=== PATIENT | male | born 1960 | race Caucasian/White ===

== ENCOUNTER 2022-01-01 07:16 | Outpatient (CLI) | payer OTHER, SELFPAY | END 2022-01-01 07:17 | disposition home or self-care (01) | LOC: FRMREF 01-09 09:30 | PROVIDERS: PCP Family Medicine; Visit Provider Family Medicine | DX: Z00.00 Encounter for general adult medical examination without abnormal findings (principal); E78.5 Hyperlipidemia, unspecified; N52.9 Male erectile dysfunction, unspecified | CPT/HCPCS: 80053; 80061; 84153 ==

== ENCOUNTER 2022-04-21 08:41 | Outpatient (CLI) | payer OTHER, SELFPAY ==
--- NOTE | 2022-04-21 09:00 | CRLHL7_ITS ---
For Patients: As a result of the 21st Century Cures Act, medical imaging exams and procedure reports are released immediately into your electronic medical record. You may view this report before your referring provider. If you have questions, please contact your health care provider. Indication: ABNORMAL WEIGHT LOSS Technique: Postcontrast CT chest, abdomen and pelvis. 122 cc Isovue 370 intravenous contrast. Please note that all CT scans at this facility use dose modulation, iterative reconstruction, and/or weight-based dosing when appropriate to reduce radiation dose to as low as reasonably achievable. Comparison: 11/26/2020 Findings: In the chest, mild emphysematous changes are present. No infiltrate or suspicious pulmonary nodule. No mediastinal, hilar or axillary adenopathy. The visualized thyroid is normal. Degenerative disc disease in the mid thoracic spine. No compression fracture. Vascular calcifications without aneurysm or dissection. No pulmonary embolism. Mild cardiomegaly. In the abdomen, the liver is within normal limits. Several peripherally calcified gallstones are present within the gallbladder lumen measuring up to 1.2 cm. No biliary obstruction. The pancreas is within normal limits. Normal spleen. The adrenal glands are normal. There is no hydronephrosis. No solid renal mass. Small renal cortical cysts are present. The largest is located on the left at the upper pole measuring 2.8 cm. Several small subcentimeter retroperitoneal lymph nodes are present. Vascular calcifications are present. Ectatic aorta noted measuring up to 2.8 cm. No bowel obstruction. Mildly prominent loops of jejunum are noted containing fluid. In the pelvis, there is a new mild compression deformity involving the superior endplate of L3. Stable benign bone island within the right posterior iliac bone. Facet degeneration lower lumbar spine. There is no pelvic or inguinal adenopathy. Bladder is normal. Mild pelvic free fluid noted. No pelvic soft tissue mass. Sigmoid diverticulosis. No diverticulitis. Impression: Mildly prominent fluid-filled loops of jejunum in the left upper quadrant may represent a chronic mild enteritis. Mild pelvic free fluid may be associated with this finding. No abscess. No bowel obstruction. Chronic sigmoid diverticulosis without diverticulitis. Ectatic abdominal aorta measuring up to 2.8 cm. Chronic cholelithiasis. Incidental simple renal cortical cysts. Mild compression deformity L3 superior endplate new since the prior study. Please note that all CT scans at this facility use dose modulation, iterative reconstruction, and/or weight-based dosing when appropriate to reduce radiation dose to as low as reasonably achievable. Dictated by Nelson Vann MD @ 04/21/2022 10:55:14 AM (Electronically Signed)
== END 2022-04-21 08:42 | disposition home or self-care (01) ==
LOC: CT 08:42
PROVIDERS: PCP Family Medicine; Visit Provider Family Medicine
DX: R63.4 Abnormal weight loss (principal); K57.30 Diverticulosis of large intestine without perforation or abscess without bleeding; K80.20 Calculus of gallbladder without cholecystitis without obstruction; N28.1 Cyst of kidney, acquired
CPT/HCPCS: 71260; 74177; Q9967

== ENCOUNTER 2022-05-18 15:30 | Outpatient (CLI) | payer OTHER, SELFPAY ==
[2022-05-18 22:36] LABS: Chloride* 105 mmol/L (96-114)
[2022-05-18 22:37] LABS: Potassium* 4.5 mmol/L (3.6-5.1); Sodium* 139 mmol/L (135-149)
[2022-05-18 22:40] LABS: Blood Urea Nitrogen* 12 mg/dL (7-30); Calcium* 8.4 mg/dL (8.4-10.6); Carbon Dioxide* 29 mmol/L (20-32); Creatinine* 0.8 mg/dL (0.5-1.5); Estimated Glomerular Filt Rate 102 ml/min
[2022-05-19 04:34] LABS: Glucose* 103 mg/dL (60-115)
== END 2022-05-18 15:31 | disposition home or self-care (01) ==
LOC: FRMREF 15:31
PROVIDERS: PCP Family Medicine; Visit Provider Family Medicine
DX: Z01.818 Encounter for other preprocedural examination (principal); I21.4 Non-ST elevation (NSTEMI) myocardial infarction; I30.9 Acute pericarditis, unspecified; K20.90 Esophagitis, unspecified without bleeding; K22.70 Barrett's esophagus without dysplasia
CPT/HCPCS: 80048

== ENCOUNTER 2022-05-22 08:09 | Outpatient (CLI) | payer OTHER, SELFPAY ==
--- NOTE | 2022-05-22 09:15 | W.ANESCHARGE ---
Anesthesia Charges Start Date/Time Anesthesia Start Date: 05/22/22 Anesthesia Start Time: 09:07 Stop Date/Time Anesthesia Stop Date: 05/22/22 Anesthesia Stop Time: 09:25 Summary Emergency: No
--- NOTE | 2022-05-22 09:33 | W.ANESCHARGE ---
Anesthesia Charges Start Date/Time Anesthesia Start Date: 05/22/22 Anesthesia Start Time: 09:07 Stop Date/Time Anesthesia Stop Date: 05/22/22 Anesthesia Stop Time: 09:25 Summary Emergency: No
== END 2022-05-22 08:10 | disposition home or self-care (01) ==
PROVIDERS: PCP Family Medicine; Visit Provider Internal Medicine
DX: K22.70 Barrett's esophagus without dysplasia (principal); K22.89 Other specified disease of esophagus; R13.10 Dysphagia, unspecified
CPT/HCPCS: 00731; 43239; 88305; 88342; J2704

== ENCOUNTER 2023-08-12 15:20 | Outpatient (CLI) | payer OTHER, SELFPAY | END 2023-08-12 15:21 | disposition home or self-care (01) | PROVIDERS: PCP Family Medicine; Visit Provider Family Medicine | DX: M32.9 Systemic lupus erythematosus, unspecified (principal); R63.4 Abnormal weight loss; E78.2 Mixed hyperlipidemia; D64.9 Anemia, unspecified; D69.6 Thrombocytopenia, unspecified; Z11.59 Encounter for screening for other viral diseases; K31.A0 Gastric intestinal metaplasia, unspecified | CPT/HCPCS: 80053; 80061; 82607; 84443; 86301; 86803; G0103 ==

== ENCOUNTER 2023-08-30 15:34 | Outpatient (CLI) | payer OTHER, SELFPAY ==
--- NOTE | 2023-08-30 16:00 | CT_ITS ---
Patient: BALA Phillips [facility] Facility:?[facility] Patient ID:?[id number] Site Patient ID:?[id number]. Site :?[id number] Study:?CT-Chest WITHOUT LUNG SCREENING-08/30/2023 3:59:56 PM Ordering Physician:?DR RODRÍGUEZ Final Report: INDICATION: Lung cancer screening. TECHNIQUE: Low-dose lung cancer screening non-contrast CT chest. Dose reduction techniques were used. COMPARISON: CT 08/28/2022 FINDINGS: NODULES: Few scattered tiny nodules are unchanged. Example 2 millimeter right middle lobe perifissural nodule 2/105. A 2 millimeter subpleural right middle lobe nodule 2/133 LUNGS AND PLEURA: Normal. MEDIASTINUM: Normal. CORONARY ARTERY CALCIFICATION: None. LIMITED UPPER ABDOMEN: Low-attenuation lesion in the left hepatic lobe unchanged probably reflects a cyst. MUSCULOSKELETAL: Normal. IMPRESSION: 1. A few small pulmonary nodules appear unchanged. LUNG-RADS CATEGORY: 2: Benign. RADIOLOGIST RECOMMENDATION: Continue annual screening with low-dose CT chest in 12 months. Please note that all CT scans at this facility use dose modulation, iterative reconstruction, and/or weight-based dosing when appropriate to reduce radiation dose to as low as reasonably achievable. Dictated by Sunni Moon MD @ 08/31/2023 6:28:51 AM Signed by:?Sunni Moon MD @08/31/2023 6:28:51 AM (Electronic Signature)
== END 2023-08-30 15:35 | disposition home or self-care (01) ==
LOC: CT 15:35
PROVIDERS: PCP Family Medicine; Visit Provider Family Medicine
DX: Z12.2 Encounter for screening for malignant neoplasm of respiratory organs (principal); R91.8 Other nonspecific abnormal finding of lung field; Z72.0 Tobacco use
CPT/HCPCS: 71271

== ENCOUNTER 2023-11-22 22:19 | Outpatient (REF) | payer OTHER, SELFPAY ==
--- OUTSIDE RECORDS SUMMARY | 2023-11-22 22:35 | XMS_ITS | Clinical Summary ---
[facility] Address [address] [place] [address] Care Team Providers Care Lead Sewage Plant Operator Name Role Phone Needs Pcp, Assignment Primary Care Provider [phone] Source Comments You are receiving this document as you are listed as the primary care provider,follow-up provider, or the patient has been referred to you for consultation.This is in compliance with the Medicare and[facility] Hospital[facility] EHR Incentive Program,which states Providers who transition their patient to another setting of careor provider of care or refers their patient to another provider of care shouldprovide summary care record for each transition of care or referral. [facility] Allerg[facility] No known active allergies Medications Medication Sig Dispensed Refills Start Date End Date Status NIFEdipine (ADALATCC) 30 MG 24 hour release tablet 1 05/19/2016 Active azaTHIOprine (IMURAN) 50 MG tablet Take 3 Tablets (150 mg) by mouth daily. 1.5 in the morning and 1 at night 08/23/2017 Active atorvastatin (LIPITOR) 40 MG tablet Take 1 Tablet (40 mg) by mouth daily at bedtime. 02/15/2022 Active LACTASE ENZYME 3000 units tablet Take 1 Tablet (3,000 Units) by mouth three times a day as needed. 04/18/2022 Active metoclopramide (REGLAN) 10 MG tablet Take 1 Tablet (10 mg) by mouth as needed. 03/19/2022 Active metoprolol succinate (TOPROL XL) 25 MG 24 hour release tablet Take 1 Tablet (25 mg) by mouth daily. 02/22/2022 Active omeprazole (PRILOSEC) 20 MG capsule Take 1 Capsule (20 mg) by mouth two times a day. 04/15/2022 Active aspirin, enteric-coated 81 MG enteric coated tablet Take 1 Tablet (81 mg) by mouth daily. Active simethicone (MYLICON) 125 MG chewable tablet Chew and swallow 2 Tablets (250 mg) by mouth every 6 hours as needed. Active loperamide (IMODIUM) 1 mg/5 mL solution Take 10 mL (2 mg) by mouth 4 times daily as needed for Diarrhea. Active Active Problems No known active problems Social History Tobacco Use Types Packs/Day Years Used Date Smoking Tobacco: Every Day Cigarettes Smokeless Tobacco: Never Tobacco Cessation:Ready to Q uit: Not Asked; Counseling Given: Not Answered Alcohol Use Standard Drinks/Week Comments Not Currently 0 (1 standard drink = 0.6 oz pur e alcohol) 2 beers/month Sex and Gender Information Value Date Recorded Sex Assigned at Not on file Gender Identity Not on file Sexual Orientation Not on file Last Filed Vital Signs Vital Sign Reading Time Taken Comments Blood Pressure 116/63 08/26/2016 10:03 AM CDT Pulse 97 08/26/2016 10:03 AM CDT Temperature 37.1 ??C (98.7 ??F) 08/26/2016 1 0:03 AM CDT Respiratory Rate 22 08/26/2016 10:0 3 AM CDT Oxygen Saturation 92% 08/26/2016 10: 03 AM CDT Inhaled Oxygen Concentration - - Weight 99.2 kg (218 lb 12.8 oz) 04/01/2023 2:17 PM GENERAL OFFICE ASSOCIATE Height 180.3 cm (5' 11) 04/01/2023 2:17 PM GENERAL OFFICE ASSOCIATE Body Mass Index 30.52 04/01/2023 2:17 PM GENERAL OFFICE ASSOCIATE Plan of Treatment Health Maintenance Due Date Last Done Comments Colon Cancer Screening Plan Due 1960 Diabetes Screening- (based o n age and BMI) 1960 PSA Screening Discussion 1962 Pneumococcal (1 - PCV) 1968 Adult Preventive Visit 1980 Cholesterol 1997 Zoster/Shingles (1 of 2) 2012 COVID-19 Vaccine (4 - 2022-2 4 season) 2023 04/19/2021, 08/15/2020, 07/18/2020 Influenza (#1) 2024 02/19/2014 DTaP/Tdap/Td (2 - Tdap) 02/20/2024 02/19/2014 HIV Screening (Preventive Services) Completed 05/19/2022 Hep C Screening (Preventive Services) Completed 05/19/2022 HepA Aged Out No longer eligi ble based on patient's age to complete this topic HepB Aged Out No longer eligi ble based on patient's age to complete this topic Hib Aged Out No longer eligi ble based on patient's age to complete this topic IPV (Polio) Aged Out No longer eligi ble based on patient's age to complete this topic MCV4 Aged Out No longer eligi ble based on patient's age to complete this topic Medical Devices Implanted Type Area Sales Trainee Device Identifier Shelf Expiration Date Model / Serial / Lot Bone Flaco Canc Crushed 15cc - [id number] Implanted:Qty : 1 on 08/25/2016 by J Luis Sheldon MD at [facility] N/A: SPINE CERVICAL ANTERIOR [employer] - [employer] 02/01/2021 [id number] / [id number] / Cage Lord Cerv 14x17 - [id number] Implanted:Qty : 1 on 08/25/2016 by J Luis Sheldon MD at [facility] DEVICE N/A: SPINE CERVICAL ANTERIOR LDR [employer]ine [employer] 06/03/2019 [id number] / / [id number] Plt Anchoring Std - [id number] Implanted:Qty : 1 on 08/25/2016 by J Luis Sheldon MD at [facility] DEVICE N/A: SPINE CERVICAL ANTERIOR LDR [employer] 10/01/2020 [id number] / / [id number] Plt Anchoring Std - [id number] Implanted:Qty : 1 on 08/25/2016 by J Luis Sheldon MD at [facility] DEVICE N/A: SPINE CERVICAL ANTERIOR LDR [employer] 10/01/2020 [id number] / / [id number] 8mm 12x15,5mm Implanted:Qty : 1 on 08/25/2016 by J Luis Sheldon MD at [facility] DEVICE N/A: SPINE CERVICAL ANTERIOR LDR [employer] 10/31/2018 [id number] / / [id number] Description:ref [id number] SNEHA-C LORDOTIC IMPLANT Procedures Procedure Name Priority Date/Time Associated Diagnosis Comments HIV 1/2 AG/AB 4TH GEN Routine 05/19/2022 3:29 PM GENERAL OFFICE ASSOCIATE Abnormal weight loss HEPATITIS PANEL ACUTE WITH REFLEX TO CONFIRMATION Routine 05/19/2022 3:29 PM GENERAL OFFICE ASSOCIATE Abnormal weight loss from Last 3 Months or Most Recently Relevant to Health Maintenance Results * Hepatitis Panel with Reflex to Confirmation (05/19/2022 3:29 PM GENERAL OFFICE ASSOCIATE) Hepatitis A Antibody, IgM Negative (Non Reactive) Negative (Non Reactive) 05/19/2022 9:20 PM GENERAL OFFICE ASSOCIATE [facility] Comment:IgM anti-HAV not det ected. Does not exclude the possibility of exposure to or infection with HAV. Levels of IgM anti-HAV may be below the cut-off in early infection. Hepatitis Bc Antibody,IgM Negative (Non Reactive) Negative (Non-Reacti ve) 05/19/2022 9:20 PM GENERAL OFFICE ASSOCIATE [facility] Comment:IgM anti-HBc not det ected. Does not exclude the possibility of exposure to or infection with HBV. Hepatitis B Surface Antigen Negative (Non Reactive) Negative (Non Reactive) 05/19/2022 9:20 PM GENERAL OFFICE ASSOCIATE [facility] Hepatitis C Antibody Negative (Non Reactive) Negative (Non Reactive) 05/19/2022 9:20 PM GENERAL OFFICE ASSOCIATE [facility] Comment:Antibodies to HCV no t detected. Does not exclude the possiblity of exposure to HCV. Blood Venipuncture / Unknown 05/19/2022 3:29 PM GENERAL OFFICE ASSOCIATE 05/19/2022 3:29 PM GENERAL OFFICE ASSOCIATE Jaci Richey APRN, ENVIRONMENTAL MONITORING TECHNICIAN LAB[facility] [address] * HIV 1/2 Ag/Ab 4th Generation (05/19/2022 3:29 PM GENERAL OFFICE ASSOCIATE) HIV 1/2 Antigen/Antib montrell (4th generation) Negative (Non Reactive) Negative (Non Reactive) 05/19/2022 9:13 PM GENERAL OFFICE ASSOCIATE [facility] Comment:HIV-1 p24 Antigen an d HIV-1/HIV-2 Antibody not detected Blood Venipuncture / Unknown 05/19/2022 3:29 PM GENERAL OFFICE ASSOCIATE 05/19/2022 3:29 PM GENERAL OFFICE ASSOCIATE Jaci Richey APRN, ABIM[place]OLA [facility] [address] [place] [address], [facility] from Last 3 Months or Most Recently Relevant to Health Maintenance Advance Directives * Full Code (Latest Code Status on File) Date Activated Date Inactivated Comments 08/25/2016 1:25 PM 08/26/2016 2:19 PM Care Teams Lead Sewage Plant Operator Relationship Specialty Start Date End [place] [address] PCP - General 10/22/16
--- OUTSIDE RECORDS SUMMARY | 2023-11-22 22:35 | XMS_ITS | Encounter Summary ---
Author Organization [facility] Address [address] [address] Care Team Providers Care Chief Diversity Officer Name Role Phone Needs Pcp, Assignment Primary Care Provider [phone] Encounter Details Date Type Department Care Team (Late st Contact Info) Description 08/25/2016 Consent for Procedure/Treatme nt [facility] Department INFORMED CONSENT RECORD Social History Tobacco Use Types Packs/Day Years Used Date Smoking Tobacco: Every Day Cigarettes Alcohol Use Standard Drinks/Week Comments Yes 0 (1 standard drink = 0.6 oz pur e alcohol) 2 beers/month Sex and Gender Information Value Date Recorded Sex Assigned at Not on file Gender Identity Not on file Sexual Orientation Not on file documented as of this encounter Plan of Treatment Not on file documented as of this encounter Visit Diagnoses Not on filedocumented in this encounter Care Teams Chief Diversity Officer Relationship Specialty Start Date End Date Needs Pcp, Assignment JONA [place], [place] [address] PCP - General 10/22/16 documented as of this encounter
--- OUTSIDE RECORDS SUMMARY | 2023-11-22 22:35 | XMS_ITS | Continuity of Care Document ---
Author Organization [facility] Address [address] [address] [place] [address] Phone Care Team Providers Care Drum Printer Name Role Phone Manuel VELÁZQUEZ, Melquiades Unavailable Unavailable Allergies, Adverse Reactions, Alerts Substance Reaction Status Criticality No Known Allergies Active No Inform ation Medications Medication Instructions Dosage Effective Dates (start - stop) Status Comments LACTASE (unknown strength) as needed Not Available - Active azathioprine 50 mg tablet take 1 tablet by oral route 2 times every day 50 MG - Active aspirin 81 mg tablet,delayed release take 1 tablet by oral route every day 81 MG - Active omeprazole 20 mg tablet,delayed release take 2 tablet by oral route 2 times every day 2 tablet - Active nifedipine ER 60 mg tablet,extended release take 1 tablet by oral route every day 60 MG - Active metoprolol succinate ER 25 mg tablet,extended release 24 hr take 0.5 tablet by oral route every day 12.5 MG - Active atorvastatin 40 mg tablet take 1 tablet by oral route every day 40 MG - Active Procedures Procedure Date Routine Serum Collection Offic/outpt E&m New Mod-hi Routine Serum Collection Advance Directives Directive Yes / No Effective Date File Name No Information Encounters Encounter Description Practice Location Reason(s) For Visit Diagnoses Date Provider Providers Copied on Encounter [facility], [address] [address], [place], [id number], [place] tel:[phone] [facility] No Information Piter-0 4 Manuel Arnett. [address] [facility], [address], [id number], [place]. tel:[phone] [facility], [address] [address], [place], [id number], [place] tel:[phone] [facility] Small bowel stricture 4 Manuel Arnett. [address] [facility], [address], [id number], [place]. tel:[phone] [facility], [address] [address], [facility] [place], [id number], [place] tel:[phone] [facility] Other specified abnormal findings of blood chemistry Aug-3 4 Manuel Arnett. [address] [place] [address], [id number], [place]. tel:[phone] Referring Provider: Referral Self, USE FOR SELF REFERRALS. [facility], [address] [address], [facility] [place], [id number], [place] tel:[phone] [facility] Elevated liver function tests Aug- 4 Manuel Arnett. [address] [place] [address], [address], [id number], [place]. tel:[phone] Offic/outpt E&m [facility], [address] [address], [facility] [place], [id number], [place] tel:[phone] [facility] GI Symptoms or Concerns (chief complaint) Nicholsa's esophagus without dysplasiaGastric intestinal metaplasiaWeight lossChange in bowel habits Aug-2 4 Manuel Arnett. [address] [place] [address], [address], [id number], [place]. tel:[phone] Referring Provider: Ivis Alvarez, [address], [place], [address]. tel:[phone] [facility], [address] [address], [place], [place], [id number], [place] tel:[phone] [facility] No Information Gabriel Brandt. [address] [facility], [facility] [address], [place], [place], [id number], [place]. tel:[phone] Family History Family Member Type Diagnosis Age At Onset No Information Immunizations Vaccine Date Status Comments SARS-COV-2 (COVID-19) vaccin e, mRNA, spike protein, LNP, preservative free, 100 mcg/0.5mL dose or 50 mcg/0.25mL dose administered Note: [facility] bi -directional interface ; Source: Other Registry SARS-COV-2 (COVID-19) vaccin e, mRNA, spike protein, LNP, preservative free, 100 mcg/0.5mL dose or 50 mcg/0.25mL dose administered Note: [facility] bi -directional interface ; Source: Other Registry SARS-COV-2 (COVID-19) vaccin e, mRNA, spike protein, LNP, preservative free, 100 mcg/0.5mL dose or 50 mcg/0.25mL dose administered Note: [facility] bi -directional interface ; Source: Other Registry tetanus toxoid, reduced diphtheria toxoid, and acellular pertussis vaccine, adsorbed administered Note: [facility] b i-directional interface ; Source: Other Registry Afluria Qd administered Note: [facility] bi-directional interface ; Source: Other Registry Payers Payer name Insurance type Covered libertarian ID Authorchapisa darbelen(s) Sada CI [id number] Social History Type Description Quantity Date Captured Comments Alcohol Use Details Unknown Caffeine Use Details Unknown Tobacco Use Status Smoking Status No Information Sex Male Chief Complaint And Reason For Visit No Information Reason For Referral Reason For Referral No Information Plan Of Treatment Date Type Action Status Referral Ordered: Hemochromatosis, DNA Gene Test, Whole Blood Appointment date/timeframe: First Available ordered Referral Ordered: Actin (Smooth Muscle) Antibody Appointment date/timeframe: First Available ordered Referral Ordered: Celiac: DGP IgA/G + TTG +IgA Appointment date/timeframe: First Available ordered Referral Ordered: Antinuclear Antibodies, STACIA, IFA Appointment date/timeframe: First Available ordered Referral Ordered: Thyroid [place] Profile Appointment date/timeframe: First Available ordered Referral Ordered: HCV RNA by PCR, Qn Rfx Talya Appointment date/timeframe: First Available ordered Referral Ordered: EGD Appointment date/timeframe: 09/13/2023 ordered Referral Ordered: Colonoscopy Appointment date/timeframe: 09/13/2023 ordered Referral Ordered: CT Enterography WITH Contrast Appointment date/timeframe: 09/16/2023 ordered Appointment [facility] BOOKED History Of Present Illness Encounter Date Complaint History Of Prese nt Illness GI Symptoms or Concerns this is a 62-year-old male with a past medical history of Barretts esophagus per chart review, lupus on azathioprine, hyperlipidemia, active smoker, nifedipine for Raynaud's who presents here for mainly unintentional weight loss of over 100 pounds in about 3 years' time. He is being sent to us for consultation by Ivis Urban MD. patient notes that 3 years ago patient weighed 335 pounds now weighs 210 pounds without meaning to lose weight. Patient has not change anything significantly with diet. Patient has noticed that in the last few months he will have some nausea and belching and then an episode of emesis and then will feel better after the episode of emesis. Patient also notes a change in bowel movements from 2-3 loose bowel movements a day and can go several days without a bowel movement then we will have 2 or 3 bowel movements again. Patient denies any abdominal pain. Two months ago he was tested for H pylori and was positive and was treated. Only outside tests that I can see is that he had a CBC done that shows mild leukopenia 3.66 and anemia of 10.7. Platelets of 143. From a social standpoint patient does smoke. No recreational drug use. Patient does not drink any alcohol during the winter iron. Has 3 or 4 drinks once a week during the summer at most. Functional Status Date Functional Assessmen t No Information Instructions Date Instruction Additional Infor oneil -- As we discussed t o evaluate your weight loss as well as some change in bowel habits we will proceed with blood testing, CT scans and upper and lower endoscopy-- after the above testing has been completed to discuss things in detail we will set up a follow up appointment Related to Nicholas's esophagus without dysplasia Assessments Type Assessment Date No Information Patient Care Teams Name Effective Dates (start - stop) Status Members No Information
--- OUTSIDE RECORDS SUMMARY | 2023-11-22 22:35 | XMS_ITS | Encounter Summary ---
Author Organization [facility] Address [address], [place] [address] Care Team Providers Care Silk Blocker Name Role Phone Needs Pcp, Assignment Primary Care Provider [phone] Encounter Details Date Type Department Care Team (Late st Contact Info) Description 08/05/2016 Correspondence External to External, [place] [address] APPROVAL NOTIFICATION Social History Tobacco Use Types Packs/Day Years [...] on filedocumented in this encounter Care Teams Silk Blocker Relationship Specialty Start Date End Date Needs Pcp[place] [address] PCP - General 10/22/16 documented as of this encounter
--- OUTSIDE RECORDS SUMMARY | 2023-11-22 22:35 | XMS_ITS | Clinical Summary ---
Author Organization [facility] Address [place], [place] [address] Care Team Providers Care Director Of Strategic Sourcing Name Role Phone Troy Abdi MD Unavailable [phone] Ivis Urban MD Primary Care Provider [phone] Allergies Active Allergy Reactions Criticality Noted Date Comments Hydroxychloroquine Diarrhea,GI Upset 06/21/2014 Medications Medication Sig Dispensed Refills Start Date End Date Status aspirin (ECOTRIN) 81 mg enteric coated tablet Take 1 Tablet (81 mg) by mouth once daily. 0 09/19/2020 Active acetaminophen (TYLENOL EXTRA STRGTH) 500 mg tablet Two tablets every morning and before bed PRN 0 09/19/2020 Active Simethicone (Gas-X) 125 mg capsule Take 1 Capsule (125 mg) by mouth 4 times daily if needed. Max dose: 500 mg per 24 hrs 0 09/24/2021 Active atorvastatin (LIPITOR) 40 mg tabletIndications:NS PATEL (non-ST elevated myocardial infarction) (HC) Take 1 Tablet (40 mg) by mouth at bedtime. 09/21/2023 Active metoprolol tartrate (LOPRESSOR) 25 mg tablet Take 12.5 mg by mouth once daily. Active NIFEdipine ER (ADALAT CC) 30 mg extended-Release tabletIndications:Ra ynaud's disease without gangrene Take 1 Tablet (30 mg) by mouth once daily before a meal. 09/21/2023 Active omeprazole (PRILOSEC) 20 mg Delayed-Release capsuleIndications:G astroesophageal reflux disease, unspecified whether esophagitis present Take 2 Capsules (40 mg) by mouth two times daily before meals. 09/21/2023 Active NIFEdipine (PROCARDIA XL) 60 mg extended-release tabletIndications:Ra ynaud's disease without gangrene TAKE 1 TABLET BY MOUTH EVERY DAY BEFORE A MEAL 90 Tablet 1 10/05/2023 Active azaTHIOprine (IMURAN) 50 mg tabletIndications:Sy stemic lupus erythematosus, unspecified SLE type, unspecified organ involvement status (HC) TAKE 2.5 TABLETS (125 MG) BY MOUTH ONCE DAILY. 150 Tablet 10/22/2023 Active Active Problems Problem Noted Date Diagnosed Date Hyperlipidemia 06/24/2012 Low testosterone 06/24/2012 Erectile dysfunction 04/18/2012 Impaired fasting glucose 04/18/2012 Calculus of gallbladder with out mention of cholecystitis or obstruction 11/11/2011 Sleep disorder 11/11/2011 Chest pain, unspecified 10/19/2011 Dyspnea 10/19/2011 Acute pericarditis 10/19/2011 Abnormal LFTs 10/19/2011 Overview: Per patient was abnormal at LFTs. 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 Tobacco abuse 10/19/2011 SLE (systemic lupus erythematosus) Encounters Date Type Department Care Team Description 11/22/2023 1:40 PM CDT Office Visit [facility] [address] [place] [address] Troy Abdi MD Follow Up 11/22/2023 Travel 10/20/2023 Refill [facility] [address] [place] [address] Troy Abdi MD Refill Request (Azathioprine) 10/04/2023 Refill [facility] [address] [place] [address] Troy Abdi MD Refill Request (Nifedipine) 09/21/2023 3:00 PM CDT Office Visit [address] [place] [id number] Elif Landaverde NP Follow Up (1 Month w/ EKG prior. F/U Pt states feeling well today, mentioned low BP this morning. ) 09/21/2023 Travel 09/16/2023 12:47 PM CDT - 09/16/2023 11:59 PM CDT Hospital Encounter [facility] [address] [facility] [place] [address] Melquiades Foster MD Nicholas's esophagus without dysplasia; Gastric intestinal metaplasia; Weight loss; Change in bowel habits 09/16/2023 Travel 09/15/2023 Refill WAVE ([employer]less [employer]) [facility] [address] [place] [address] Troy Abdi MD Refill Request (Azathioprine) 08/26/2023 Orders Only [facility] [address] [facility] [place] [place] [address] Melquiades Foster MD 1 scan: (1-Ord) diag order from Last 3 Months Immunizations Name Administration Dates Next Due Influenza, IIV4 02/19/2014 Tdap 02/19/2014 Family History Medical History Relation Name Comments Cancer-colon Father Cancer-prostate Father Anesthesia Problem No Family History Blood Disease No Family History Relation Name Status Comments Father Social History Tobacco Use Types Packs/Day Years Used Date Smoking Tobacco: Every Day Cigarettes Smokeless Tobacco: Former Tobacco Cessation:Ready to Q uit: Not Asked; Counseling Given: Not Answered Comments:3/4 pack daily Alcohol Use Standard Drinks/Week Comments Yes 0 (1 standard drink = 0.6 oz pure alcohol) very rarely (once every 3 months) Social Connections Answer Date Recorded Frequency of Communication with Friends and Fami ly Not on file 04/25/2021 Financial Resource Strain Answer Date R ecorded Difficulty of Paying Living Expenses Not on file 04/25/2021 Difficulty of Paying Living Expenses Not on file 04/25/2021 Sex and Gender Information Value Date Recorded Sex Assigned at Not on file Gender Identity Not on file Sexual Orientation Not on file Obstetrics History Last Filed Vital Signs Vital Sign Reading Time Taken Comments Blood Pressure 100/64 11/22/2023 1:38 PM CDT Pulse 64 11/22/2023 1:38 PM CDT Temperature 36.9 ??C (98.4 ??F) 08/11/2016 3:21 PM CD T Respiratory Rate 16 10/01/2022 3:25 PM CDT Oxygen Saturation 99% 09/21/2023 2:56 PM CDT Inhaled Oxygen Concentration - - Weight 98.5 kg (217 lb 1.6 oz) 11/22/2023 1:38 P M CDT Height 180.3 cm (5' 11) 11/22/2023 1:38 PM CDT Body Mass Index 30.28 11/22/2023 1:38 PM CDT Plan of Treatment Upcoming Encounters Date Type Department Care Team (Late st Contact Info) Description 12/20/2023 11:00 AM CDT Office Visit 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 Office Visit [facility] [address] [place], [place] [id number] Troy Abdi MD [address] [place] [address] Health Maintenance Due Date Last Done Comments Pneumococcal series for age 6-64 (1 of 2 - PCV) 1968 Depression screening for age 12+ 1974 HIV for age 15-65 1977 Zoster (shingles) series for age 50+ (1 of 2) 1981 COVID-19 vaccine series ( season) 2023 04/19/2021, 08/15/2020, 07/18/2020 Influenza for age 50-64 01/02/2024 02/19/2014 Tetanus booster 02/20/2024 02/19/2014 BMI (ht and wt on same day) for age 18+ 11/21/2024 11/22/2023, 09/21/2023, 07/13/2023, Additional history exists Lipids for age 45-75 07/12/2028 07/13/2023, 02/19/2014, 09/21/2012, Additional history exists Colonoscopy through age 75 09/16/2031 09/15/2021 Hepatitis C screening for ag e 18-79 Completed 02/19/2014 Tdap Completed 02/19/2014 Procedures Procedure Name Priority Date/Time Associated Diagnosis Comments CBC WITH AUTO DIFFERENTIAL Routine 11/22/2023 2:12 PM CDT Systemic lupus erythematosus, unspecified SLE type, unspecified organ involvement status (HC) Raynaud's disease without gangrene CBC WITH AUTO DIFFERENTIAL Routine 11/22/2023 2:12 PM CDT Systemic lupus erythematosus, unspecified SLE type, unspecified organ involvement status (HC) Raynaud's disease without gangrene EKG 12 LEAD Today 09/21/2023 2:50 PM CDT NSTEMI (non-ST elevated myocardial infarction) (HC) CT ABDOMEN PELVIS ENTEROGRAPHY W Routine 09/16/2023 2:09 PM CDT Nicholas's esophagus without dysplasia Gastric intestinal metaplasia Weight loss Change in bowel habits CREATININE,ISTAT Timed 09/16/2023 1:57 PM CDT LIPID PANEL W REFLEX MEASURED LDL Today 07/13/2023 1:31 PM CDT Hyperlipidemia, unspecified hyperlipidemia type COLONOSCOPY DIAGNOSTIC Routine 09/15/2021 12:00 AM CDT Diarrhea, unspecified type Abnormal CT of the abdomen Periumbilical abdominal pain Bloating ANTI HCV Routine 02/19/2014 9:45 AM CDT Need for hepatitis C screening test from Last 3 Months or Most Recently Relevant to Health Maintenance Results * (ABNORMAL) CBC WITH AUTO DIFFERENTIAL (11/22/2023 2:12 PM CDT) [facility] WHITE BLOOD COUNT 4.1(L) 4.5 - 11.0 thou/cu mm 11/22/2023 2:29 PM [facility] RED BLOOD COUNT 4.05(L) 4.30 - 5.90 mil/cu mm 11/22/2023 2:29 PM [facility] HEMOGLOBIN 12.0(L) 13.5 - 17.5 g/dL 11/22/2023 2:29 PM [facility] HEMATOCRIT 37.8 37.0 - 53.0 % 11/22/2023 2:29 PM [facility] MCV 93 80 - 100 fL 11/22/2023 2:29 PM [facility] MCH 29.6 26.0 - 34.0 pg 11/22/2023 2:29 PM [facility] MCHC 31.7(L) 32.0 - 36.0 g/dL 11/22/2023 2:29 PM [facility] RDW 13.5 11.5 - 15.5 % 11/22/2023 2:29 PM [facility] PLATELET COUNT 138(L) 140 - 440 thou/cu mm 11/22/2023 2:29 PM [facility] MPV 10.4 6.5 - 11.0 fL 11/22/2023 2:29 PM [facility] NRBC 0.0 % 11/22/2023 2:29 PM [facility] ABS NRBC 0.0 thou /cu mm 11/22/2023 2:29 PM [facility] % NEUT 53.5 % 11/22/2023 2:29 PM [facility] % LYMPH 26.7 % 11/22/2023 2:29 PM [facility] % MONO 17.6 % 11/22/2023 2:29 PM [facility] % EOS 1.5 % 11/22/2023 2:29 PM [facility] % BASO 0.5 % 11/22/2023 2:29 PM [facility] % IMMATURE GRAN (METAS,MYELOS,DC OS) 0.2 % 11/22/2023 2:29 PM [facility] ABSOLUTE NEUTROPHILS 2.2 1.7 - 7.0 thou/cu mm 11/22/2023 2:29 PM CDT [facility] ABSOLUTE LYMPHOCYTES 1.1 0.9 - 2.9 thou/cu mm 11/22/2023 2:29 PM CDT [facility] ABSOLUTE MONOCYTES 0.7 <0.9 thou/cu mm 11/22/2023 2:29 PM CDT [facility] ABSOLUTE EOSINOPHILS 0.1 <0.5 thou/cu mm 11/22/2023 2:29 PM CDT [facility] ABSOLUTE BASOPHILS 0.0 <0.3 thou/cu mm 11/22/2023 2:29 PM CDT [facility] ABSOLUTE IMMATURE GRANULOCYTES(MET ,MYELOS,PROS) 0.0 <0.3 thou/cu mm 11/22/2023 2:29 PM CDT [facility] Blood BLOOD SPECIMEN / Unknown Venipuncture / Unknown 11/22/2023 2:12 PM CDT 11/22/2023 2:12 PM CDT Troy Abdi MD HEMATOLOGY [facility] SENDOUT INTERNAL ZIP [id number] [place] [address] * EKG 12 LEAD (09/21/2023 2:50 PM CDT) Interpretation Undetermined rhythm High degree Left axis deviation Left ventricular hypertrophy with QRS widening ( R in aVL , [place] product ) AV Block Cannot rule out Septal infarct (cited on or before 08-JUN-2023) Abnormal ECG When compared with ECG of 08-JUN-2023 15:55, Current undetermined rhythm precludes rhythm comparison, needs review Ventricular Rate 54 BPM Atrial Rate 115 BPM P-R Interval ms QRS Duration 136 ms QT 442 ms QTc 419 ms P [place] degrees R [place] -57 degrees T [place] 33 degrees 09/21/2023 2:50 PM CDT 10/05/2023 12:29 PM CDT Elif Landaverde APPRENTICE/LINEMAN EKG ORD * CT ABDOMEN PELVIS ENTEROGRAPHY W (09/16/2023 2:09 PM CDT) Anatomical Region Laterality Modality Abdomen, Pelvis, AORTA, LIVER, SPLEEN Computed Tomography 09/17/2023 3:06 PM CDT Impressions 09/17/2023 3:06 PM CDT Long segmental dilatation of the proximal jejunum beginning at the ligament of Treitz with an apparent transition point in the left upper quadrant (series 7; image 239 and series 5; images 48-50). No obstructing lesion is identified. This may represent a partial small bowel obstruction. No associated abnormal bowel wall thickening or hypoenhancement. No intraluminal lesion of the bowel is identified. Otherwise, diverticulosis of the distal descending and sigmoid colon is noted without evidence of acute diverticulitis. There are no other findings to explain history of altered bowel habits. If not already done, subspecialty (e.g. Gastroenterology, surgery) consultation is suggested. Please note that all CT scans at this facility use dose modulation, iterative reconstruction, and/or weight-based dosing when appropriate to reduce radiation dose to as low as reasonably achievable. Dictated by Mushtaq Huynh MD @ 09/17/2023 3:06:20 PM (Electronically Signed) Narrative 09/17/2023 3:06 PM CDT For Patients: ??As a result of the 21st Century Cures Act, medical imaging exams and procedure reports are released immediately into your electronic medical record. ??You may view this report before your referring provider. ??If you have questions, please contact your health care provider. INDICATION: Weight loss. Altered bowel habits, not otherwise described. History of Nicholas`s esophagus. COMPARISON: None available. TECHNIQUE: CT of the abdomen and pelvis with 100 cc of Omnipaque 350 intravenous contrast. 1350 mL of NeuLumEX oral contrast was also given. Please note that all CT scans at this facility use dose modulation, iterative reconstruction, and/or weight-based dosing when appropriate to reduce radiation dose to as low as reasonably achievable. FINDINGS: ABDOMEN ? Liver: Normal hepatic attenuation. ??No suspicious focal hepatic lesion. No intrahepatic biliary ductal dilatation. Patent portal and hepatic veins. ?? Gallbladder: Cholelithiasis. Normal common duct caliber. No pericholecystic inflammatory changes. ?? Pancreas: Normal pancreatic attenuation. No focal lesion. Normal duct caliber. No peripancreatic inflammatory changes. ?? Spleen: Normal splenic attenuation. No suspicious focal lesion. Patent splenic artery and vein. ?? Adrenal Glands: Symmetrical adrenal glands. No focal lesion of significance. ?? Kidneys: Normal bilateral renal attenuation. No suspicious focal lesion. No obstructing nephrolith or dilatation of the intrarenal collecting systems. Patent renal arteries and veins. Nondilated upper urinary tracts. ?? Gastrointestinal tract: Segmental dilatation of the proximal jejunum beginning at the ligament of Treitz with an apparent transition point in the left upper quadrant (series 7; image 239 and series 5; images 48-50). No obstructing lesion is identified. This may represent a partial small bowel obstruction. No abnormal bowel wall thickening or hypoenhancement. No intraluminal lesion is identified. Diverticulosis of the distal descending and sigmoid colon without associated inflammatory changes. Normal mesentery. Unidentified appendix. ?? Vascular: Abdominal aorta and its major proximal branches including the celiac, superior mesenteric, inferior mesenteric, renal, and bilateral common iliac arteries are patent. Inferior vena cava, portal and superior mesenteric veins are patent. ?? Additional findings: No incidental adenopathy. No significant ascites, free fluid or pneumoperitoneum. ? PELVIS ? No bladder lesion is identified. No significant incidental findings related to the prostate and seminal vesicles. No abnormal free fluid. No incidental adenopathy. ? SKELETON AND BODY WALL ?? No acute or suspicious incidental findings. Chronic appearing moderate L3 superior endplate compression deformity. LOWER THORAX ?? Cardiomegaly. Moderate multivessel atherosclerotic coronary artery calcification. Partially included lower thoracic wall, lungs, pleural spaces and mediastinum are otherwise without significant incidental findings. Procedure Note Mushtaq Huynh MD - 09/17/2023 For Patients: As a result of the 21st Century Cures Act, medical imagingexams and procedure reports are released immediately into your electronicmedical record. You may view this report before your referring provider.If you have questions, please contact your health care provider. INDICATION: Weight loss. Altered bowel habits, not otherwise described. History ofBarrett`s esophagus. COMPARISON: None available. TECHNIQUE: CT of the abdomen and pelvis with 100 cc of Omnipaque 350 intravenouscontrast. 1350 mL of NeuLumEX oral contrast was also given. Please notethat all CT scans at this facility use dose modulation, iterativereconstruction, and/or weight-based dosing when appropriate to reduceradiation dose to as low as reasonably achievable. FINDINGS: ABDOMEN Liver: Normal hepatic attenuation. No suspicious focal hepatic lesion. Nointrahepatic biliary ductal dilatation. Patent portal and hepatic veins. Gallbladder: Cholelithiasis. Normal common duct caliber. Nopericholecystic inflammatory changes. Pancreas: Normal pancreatic attenuation. No focal lesion. Normal ductcaliber. No peripancreatic inflammatory changes. Spleen: Normal splenic attenuation. No suspicious focal lesion. Patentsplenic artery and vein. Adrenal Glands: Symmetrical adrenal glands. No focal lesion ofsignificance. Kidneys: Normal bilateral renal attenuation. No suspicious focal lesion.No obstructing nephrolith or dilatation of the intrarenal collectingsystems. Patent renal arteries and veins. Nondilated upper urinary tracts. Gastrointestinal tract: Segmental dilatation of the proximal jejunumbeginning at the ligament of Treitz with an apparent transition point inthe left upper quadrant (series 7; image 239 and series 5; images 48-50).No obstructing lesion is identified. This may represent a partial smallbowel obstruction. No abnormal bowel wall thickening or hypoenhancement.No intraluminal lesion is identified. Diverticulosis of the distaldescending and sigmoid colon without associated inflammatory changes.Normal mesentery. Unidentified appendix. Vascular: Abdominal aorta and its major proximal branches including theceliac, superior mesenteric, inferior mesenteric, renal, and bilateralcommon iliac arteries are patent. Inferior vena cava, portal and superiormesenteric veins are patent. Additional findings: No incidental adenopathy. No significant ascites,free fluid or pneumoperitoneum. PELVIS No bladder lesion is identified. No significant incidental findingsrelated to the prostate and seminal vesicles. No abnormal free fluid. Noincidental adenopathy. SKELETON AND BODY WALL No acute or suspicious incidental findings. Chronic appearing moderate [id number] endplate compression deformity. LOWER THORAX Cardiomegaly. Moderate multivessel atherosclerotic coronary arterycalcification. Partially included lower thoracic wall, lungs, pleuralspaces and mediastinum are otherwise without significant incidentalfindings. IMPRESSION: Long segmental dilatation of the proximal jejunum beginning at theligament of Treitz with an apparent transition point in the left upperquadrant (series 7; image 239 and series 5; images 48-50). No obstructinglesion is identified. This may represent a partial small bowelobstruction. No associated abnormal bowel wall thickening orhypoenhancement. No intraluminal lesion of the bowel is identified. Otherwise, diverticulosis of the distal descending and sigmoid colon isnoted without evidence of acute diverticulitis. There are no otherfindings to explain history of altered bowel habits. If not already done,subspecialty (e.g. Gastroenterology, surgery) consultation is suggested. Please note that all CT scans at this facility use dose modulation,iterative reconstruction, and/or weight-based dosing when appropriate toreduce radiation dose to as low as reasonably achievable. Dictated by Mushtaq Huynh MD @ 09/17/2023 3:06:20 PM (Electronically Signed) Melquiades Foster MD CT * CREATININE,ISTAT (09/16/2023 1:57 PM CDT) [facility] CREATININE, POCT 0.70 0.57 - 1.11 mg/dL 09/16/2023 2:00 PM CDT [facility] eGFR >90 >90 mL/min/1.7 3m2 09/16/2023 2:00 PM CDT [facility] Comment:As of 2021, eG FR is calculated by the CKD-EPI creatinine equation without race adjustment. eGFR can be influenced by muscle mass, exercise, and diet. The reported eGFR is an estimation only and is only applicable if the renal function is stable. Blood BLOOD SPECIMEN / Unknown 09/16/2023 1:57 PM CDT 09/16/2023 2:00 PM CDT Melquiades Foster MD CHEMISTRY [address] [address] * (ABNORMAL) LIPID PANEL W REFLEX MEASURED LDL (07/13/2023 1:31 PM CDT) [facility] CHOLESTEROL,TOTAL 62(L) 100 - 199 mg/dL 07/13/2023 1:57 PM CDT [facility] Comment: Cholesterol, Total Reference Ranges Desirable <200 mg/dL Borderline 200-239 mg/dL High >=240 mg/dL TRIGLYCERIDES 50 <150 mg/dL 07/13/2023 1:57 PM CDT [facility] HDL CHOLESTEROL 29(L) >40 mg/dL 1:57 PM CDT [facility] NON-HDL CHOLESTEROL 33 <145 mg/dl 07/13/2023 1:57 PM CDT [facility] CHOL/HDL RATIO 2.14 <4.50 07/13/2023 1:57 PM CDT [facility] LDL CHOLESTEROL 23 <=130 mg/dL 07/13/2023 1:57 PM CDT [facility] VLDL CHOLESTEROL 10 <=30 mg/dL 07/13/19 1:57 PM CDT [facility] PROVIDER ORDERED STATUS RANDOM 07/13/2023 1:57 PM CDT [facility] Blood BLOOD SPECIMEN / Unknown Venipuncture / Unknown 07/13/2023 1:31 PM CDT 07/13/2023 1:31 PM CDT Elif Landaverde NP CHEMISTRY [id number] [place] [address] * COLONOSCOPY DIAGNOSTIC (09/15/2021 12:00 AM CDT) Jc Angulo MD GI PROCEDURE ORD * ANTI HCV [94760.2] (02/19/2014 9:45 AM CDT) HEPATITIS C ANTIBODY Non-Reacti ve Non-Reacti ve 02/19/2014 4:47 PM CDT [facility] Blood specimen (specimen) BLOOD SPECIMEN / Unknown Venipuncture / Unknown 02/19/2014 9:45 AM CDT 02/19/2014 9:[address] [facility] - 02/19/2014 4:47 PM CDT Antibodies to HCV not detected; does not exclude the possibility of exposure to HCV. Phyllis Mauricio MD SEND OUTS [facility] [address] [place] [address] [address] [place] [address], from Last 3 Months or Most Recently Relevant to Health Maintenance Advance Directives * Full Code (Latest Code Status on File) Date Activated Date Inactivated Comments 10/19/2011 3:48 PM 10/22/2011 7:15 PM Care Teams Director Of Strategic Sourcing Relationship Specialty Start Date End Date Ivis Urban MD [address] [place] [address] PCP - General 08/31/23 Troy Abdi MD [address] [facility] [address] [place] [address] Rheumatology Rheumatology 03/08/14
--- OUTSIDE RECORDS SUMMARY | 2023-11-22 22:35 | XMS_ITS | Encounter Summary ---
Author Organization [facility] Address [address], [place] [address] Care Team Providers Care Sprayer Hand Name Role Phone Needs Pcp, Assignment Primary Care Provider [phone] Encounter Details Date Type Department Care Team (Late st Contact Info) Description 08/05/2016 Correspondence External to External, [place] [address] DENIED [employer] Social History Tobacco Use Types Packs/Day Years [...] on filedocumented in this encounter Care Teams Sprayer Hand Relationship Specialty Start Date End Date Needs Pcp, [place] [address] PCP - General 10/22/16 documented as of this encounter
[2023-11-25 01:41] LABS: Testosterone, Adult Male 539 ng/dL (300-720)
== END 2023-11-22 22:20 | disposition home or self-care (01) ==
LOC: NPINS 22:19
PROVIDERS: PCP Family Medicine; Visit Provider Urology
DX: E29.1 Testicular hypofunction (principal)
CPT/HCPCS: 84403

== ENCOUNTER 2024-01-27 15:57 | Outpatient (RCR) | payer OTHER, SELFPAY | END 2024-05-10 15:57 | disposition home or self-care (01) | PROVIDERS: PCP Family Medicine; Visit Provider Nurse Practitioner Family | DX: T14.8XXA Other injury of unspecified body region, initial encounter (principal); M54.50 Low back pain, unspecified; Z51.89 Encounter for other specified aftercare | CPT/HCPCS: 97110; 97161 ==

== ENCOUNTER 2024-09-28 15:08 | Outpatient (CLI) | payer OTHER, SELFPAY | END 2024-09-28 15:09 | disposition home or self-care (01) | PROVIDERS: PCP Family Medicine; Visit Provider Family Medicine | DX: Z00.00 Encounter for general adult medical examination without abnormal findings (principal); E78.5 Hyperlipidemia, unspecified; Z12.5 Encounter for screening for malignant neoplasm of prostate | CPT/HCPCS: 80053; 80061; G0103 ==